=== PATIENT | female | born 1985 | race Caucasian/White ===

== ENCOUNTER 2019-03-21 16:25 | Observation (INO) ==
[2019-03-21] MEDS ORDERED: IOPAMIDOL 100 ML BOTTLE IV ONE (16:26)
[2019-03-21] MEDS ORDERED: PROMETHAZINE 25 MG/ML VIAL IV ONE (16:48)
[2019-03-21] MEDS ORDERED: 0.9 % SODIUM CHLORIDE 1,000 ML IV ONE (16:48)
[2019-03-21 17:12] LABS: POC Blood Urea Nitrogen 10 mg/dl (6-20); POC CO2 21 mmol/L (22-30); POC Calcium, Ionized 1.09 mmol/L (1.16-1.32); POC Chloride 106 mmol/L (96-108); POC Creatinine 0.3 mg/dl (0.6-1.1); POC Glucose, Random 103 mg/dL (70-105); POC Potassium 3.5 mmol/L (3.3-5.1); POC Sodium 138 mmol/L (133-145)
[2019-03-21 17:39] LABS: Basophils # (Auto) 0.1 K/mcL (0.0-0.3); Basophils % (Auto) 0.6 % (0.0-2.0); Eosinophils # (Auto) 0.3 K/mcL (0.0-0.7); Eosinophils % (Auto) 2.4 % (0.0-7.0); Granulocytes % (Auto) 89.3 % (38.0-78.0); Hematocrit 37.3 % (36.0-48.0); Hemoglobin 11.9 g/dL (12.0-15.0); Lymphocytes # (Auto) 0.5 K/mcL (1.5-4.8); Lymphocytes % (Auto) 4.5 % (15.5-49.0); Mean Cell Volume 78.3 fL (80.0-100.0); Mean Platelet Volume 8.5 fL (7.4-10.4); Monocytes # (Auto) 0.4 K/mcL (0.1-0.9); Monocytes % (Auto) 3.2 % (1.0-12.0); Platelet Count 327 K/mcL (140-440); RBC 4.77 M/mcL (4.00-5.20); Red Cell Distribution Width 19.8 % (11.5-14.5); WBC 11.2 K/mcL (4.5-11.0)
[2019-03-21] MEDS ORDERED: HYDROmorphone 2 MG/ML VIAL IV SCH (17:45)
[2019-03-21 17:56] LABS: ALT/SGPT 16 U/l (0-40); AST/SGOT 16 U/l (0-37); Albumin 3.7 gm/dL (3.2-5.2); Albumin/Globulin Ratio 1.2 (1.0-2.3); Alkaline Phosphatase 63 U/L (39-117); Bilirubin,Total 0.4 mg/dL (0.0-1.0); Blood Urea Nitrogen 11 mg/dl (6-20); Calcium 8.1 mg/dl (8.6-10.4); Carbon Dioxide 21 mmol/L (22-30); Chloride 106 mmol/L (96-108); Globulin 3.2 gm/dL (2.2-3.7); Glomerular Filtration Rate 137; Glucose 103 mg/dL (70-105)
--- NOTE | 2019-03-21 17:56 | Cat Scan Report ---
CLINICAL INFORMATION: Diffuse abdominal pain COMPARISON: None. TECHNIQUE: Following water as enteric contrast, 80 cc of Isovue-300 were injected intravenously, and 60 seconds later, 0.625 mm helical slices were obtained from the mid heart through the subtrochanteric regions. Following reconstruction, 2.5 mm sagittal, coronal and axial reformatted images were processed and reviewed at bone, lung and soft tissue windows. Five minutes later, 0.625 mm helical slices were obtained from the mid heart through the kidneys and viewed at soft tissue windows.The exam was performed using radiation dose optimization techniques including, but not limited to, automated exposure control, adjustment of the mA and/or kV according to patient size and use of iterative reconstruction technique. FINDINGS: Lung bases show no abnormality - no effusion. The visualized heart is unremarkable. Images through the abdomen show mild fatty change within the liver, but no focal lesion. The gallbladder is surgically absent. Intrahepatic and common bile ducts are normal caliber CBD is 5 mm. Both kidneys, adrenal glands, spleen, pancreas and aorta, including aortic branches, are normal in size, configuration and attenuation without focal lesion. Stomach, small and large bowel are symmetrically dilated compatible with mild ileus. Dwain-en-Y gastric bypass changes appear grossly normal. There is no free air, free fluid or adenopathy. Images through the pelvis show urinary bladder is unremarkable. Anteflexed uterus is normal in size 10 x 4 cm with a IUD in proper position in the endometrial cavity. Bone windows show no osseous abnormality. IMPRESSION: Moderate ileus Interpreted and Authenticated by: Roddy Perea 03/21/19
[2019-03-21] MEDS ORDERED: HYDROmorphone 2 MG/ML VIAL IV PRN (18:09)
--- NOTE | 2019-03-21 18:32 | Emergency Department Note ---
Abdominal Pain HPI - General Chief Complaint: Abdominal Pain Stated Complaint: abd pain Time Seen by Provider: 03/21/19 16:42 Source: patient Mode of arrival: ambulatory Limitations: no limitations - History of Present Illness HPI Narrative: 33-year-old female presents with diffuse abdominal pain. States she has chronic abdominal pain since 2009 when she had a gastric bypass and has been a complication since then. States she always has abdominal pain but the last 24 to 48 hours at all this and became much worse. Positive nausea. Some dry heaving but no vomiting. No diarrhea. Does have chills. No cough or cold symptoms. States the pain is all over her stomach and she does notKnow how to describe it better than that. - Related Data Home Medications Medication Instructions Recorded Confirmed Omeprazole 40 mg PO 03/21/19 Allergies Allergy/AdvReac Type Severity Reaction Status Date / Time morphine AdvReac Mild Hives Verified 03/21/19 16:28 NSAIDS (Non-Steroidal AdvReac Mild Other Verified 03/21/19 16:28 Anti-Inflamma Penicillins AdvReac Mild Anaphylaxis Verified 03/21/19 16:28 prednisone AdvReac Mild Rash Verified 03/21/19 16:28 Review of Systems All systems ED: reviewed and negative except as stated. Abdominal Pain PMH - Past Medical History Medical history: Reports: other (Gastric bypass surgery in 2009 and since then has had multiple abdominal abscesses and hernias that have been repaired.) Surgical history ED: Reports: herniorrhaphy, other (Gastric bypass) - Social History Smoking status: Current every day smoker Alcohol use: Reports: Unknown Drug use: Reports: unknown Physical Exam Limitations: no limitations General appearance: alert, other (Appears in pain) Head: atraumatic, normocephalic, normal inspection Eye: Present: normal appearance. Absent: conjunctival injection ENT: normal exam, normal oropharynx, mucous membranes moist, TM's normal bilaterally, normal external ear exam, other (Lips are slightly dry) Neck: Present: normal inspection, trachea midline. Absent: tenderness, lymphadenopathy Respiratory: Present: normal lung sounds bilaterally. Absent: respiratory distress, rales/crackles, accessory muscle use Cardiovascular: Present: regular rate, tachycardia, normal heart sounds Abdominal: Present: soft, distention, tenderness (Mild distention diffuse tenderness), guarding (Diffuse), hypoactive bowel sounds. Absent: rigidity, mass Extremities: Present: normal inspection, normal capillary refill Neurological: Present: alert, oriented X3 Psychiatric: Present: normal affect, normal mood Skin: Present: warm, dry, intact, normal color. Absent: rash, cyanosis, diaphoresis, erythema Course Course Narrative: At 1830 I did speak with the surgeon on-call, Dr. Vasquez who agrees to accept this patient we will put her in observation Vital Signs Temperature 100.0 F H 03/21/19 16:25 Pulse Rate 113 H 03/21/19 16:25 Respiratory Rate 16 03/21/19 16:25 Blood Pressure 112/73 03/21/19 16:25 Pulse Oximetry (%) 97 03/21/19 16:25 Temperature 100.5 F H 03/21/19 17:10 Pulse Rate 113 H 03/21/19 16:25 Respiratory Rate 22 03/21/19 17:10 Blood Pressure 108/56 03/21/19 17:10 Pulse Oximetry (%) 99 03/21/19 17:10 Abdominal Pain - Lab Data Lab results reviewed: Yes I reviewed the patient's lab results. Result diagrams: 03/21/19 17:04 03/21/19 17:04 Lab Results 03/21/19 03/21/19 Range/Units 17:04 17:04 WBC 11.2 H (4.5-11.0) K/mcL RBC 4.77 (4.00-5.20) M/mcL Hgb 11.9 L (12.0-15.0) g/dL Hct 37.3 (36.0-48.0) % POC Hct 37.0 (36.0-48.0) % MCV 78.3 L (80.0-100.0) fL MCH 25.0 L (26.0-34.0) pg MCHC 32.0 (31.0-36.0) g/dL RDW 19.8 H (11.5-14.5) % Plt Count 327 (140-440) K/mcL MPV 8.5 (7.4-10.4) fL Gran % 89.3 H (38.0-78.0) % Lymph % (Auto) 4.5 L (15.5-49.0) % [place] % (Auto) 3.2 (1.0-12.0) % Eos % (Auto) 2.4 (0.0-7.0) % Baso % (Auto) 0.6 (0.0-2.0) % Gran # 10.0 H (1.8-8.0) K/mcL Lymph # (Auto) 0.5 L (1.5-4.8) K/mcL [place] # (Auto) 0.4 (0.1-0.9) K/mcL Eos # (Auto) 0.3 (0.0-0.7) K/mcL Baso # (Auto) 0.1 (0.0-0.3) K/mcL POC Sodium 138 (133-145) mmol/L Sodium 139 (133-145) mmol/L POC Potassium 3.5 (3.3-5.1) mmol/L Potassium 3.5 (3.3-5.1) mmol/L POC Chloride 106 (96-108) mmol/L Chloride 106 (96-108) mmol/L Carbon Dioxide 21 L (22-30) mmol/L POC Total CO2 21 L (22-30) mmol/L Anion Gap 12.0 (8-16) POC BUN 10 (6-20) mg/dl BUN 11 (6-20) mg/dl Creatinine 0.4 L (0.6-1.1) mg/dl POC Creatinine 0.3 L (0.6-1.1) mg/dl GFR Calculation 137 Glucose 103 (70-105) mg/dL POC Glucose 103 (70-105) mg/dL Calcium 8.1 L (8.6-10.4) mg/dl POC WB Ioniz Calcium 1.09 L (1.16-1.32) mmol/L Total Bilirubin 0.4 (0.0-1.0) mg/dL AST 16 (0-37) U/l ALT 16 (0-40) U/l Alkaline Phosphatase 63 (39-117) U/L Total Protein 6.9 (5.9-8.4) gm/dL Albumin 3.7 (3.2-5.2) gm/dL Globulin 3.2 (2.2-3.7) gm/dL Albumin/Globulin Ratio 1.2 (1.0-2.3) Lipase 23 (7-60) U/L - Radiology Data Radiology results reviewed: Yes I reviewed the patient's radiology results. Disposition Pt seen by PRODUCT MANAGEMENT MANAGER/PA only: Yes Clinical Impression: Abdominal pain, Ileus, Nausea Disposition: Xfer As Outpt/Obs ([facility]) Condition: Fair Referrals: Rachel Vasquez MD [Physician] - Time of Disposition: 18:34
[2019-03-21] MEDS ORDERED: DIATRIZOATE MEGLU/DIATRIZO SOD 30 ML BOTTLE PO ONE (19:19)
[2019-03-21] MEDS: 0.9 % SODIUM CHLORIDE 1,000 ML IV SCH (20:18)
--- NOTE | 2019-03-21 21:17 | General Surg History&Physical ---
History of Present Illness Patient information: Note initiated : 03/21/19 at 9:15 pm Service Date, if different from initiated Date: [] Patient: Devan,December a 33 y/o F admitted on 03/21/19 for abd pain. Chief Complaint: [] HPI: Ms. Hartman is a 33 year old F admitted for evaluation of severe abdominal pain. The patient has a history of recurrent intestinal obstruction and multiple incisional hernias. She underwent gastric bypass in 2009. She had laparoscopic repair of incisional hernia in 2013. After that time she had laparoscopy for small bowel obstruction and drainage of a pelvic abscess. She has had repeat hernia in the epigastric midline 2014. Patient lost weight from 339 pounds 223 pounds. She had acute onset of abdominal pain with nausea and retching. Her last bowel movement was yesterday. She did not have any hematochezia. She had flatus yesterday but not today. She does not have major abdominal distention. Her white blood count has increased to 11.2. BUN and creatinine and liver enzymes are normal. CT findings suggestive of adynamic ileus with dilated small bowel and colon loops with gas extending to her rectum. Review of Systems All systems PM: reviewed and no additional remarkable complaints except as stated (no other symptoms except as noted in the history of present illness) Past History Past medical history: No chronic medical illnesses Past surgical history: Laparoscopic gastric bypass. Laparoscopic incisional hernia repair 2. Diagnostic laparoscopy. Bowel obstruction. Diagnostic laparoscopy for pelvic abscess. Cholecystectomy. 2 Past family history: Parents age 49 and 52 without medical illness. Siblings alive and well without Past social history: Tobacco one half pack per day. Denies alcohol use. Denies drug use Medications and Allergies Home Medications Medication Instructions Recorded Confirmed Type Omeprazole 40 mg PO DAILY 03/21/19 03/21/19 History Allergies Allergy/AdvReac Type Severity Reaction Status Date / Time morphine AdvReac Mild Hives Verified 03/21/19 16:28 NSAIDS (Non-Steroidal AdvReac Mild Other Verified 03/21/19 16:28 Anti-Inflamma Penicillins AdvReac Mild Anaphylaxis Verified 03/21/19 16:28 prednisone AdvReac Mild Rash Verified 03/21/19 16:28 Exam Temp Pulse Resp BP Pulse Ox 99.5 F H 90 16 114/73 95 03/21/19 20:00 03/21/19 20:00 03/21/19 20:00 03/21/19 20:00 03/21/19 20:00 - General physical appearance well developed, well nourished, no distress, moderate pain - Eyes PERRL, normal ocular movement - ENT normal pinna, normal nares, normal mucosa, no hearing loss, no congestion - Head Head exam IM: Present: atraumatic, normocephalic - Neck no masses, no bruits, trachea midline, no lymphadenopathy, no venous distension - Cardiovascular Cardiovascular exam IM: Present: normal rate and rhythm - Respiratory normal expansion, normal respiratory effort, clear to percussion, clear to auscultation - Abdomen Abdomen: Present: soft, tender (mild diffuse tenderness without pinpoint area; hyperactive bowel sounds; no palpable masses; no distention), bowel sounds Hernia: Present: none - Genitourinary Present: normal external genitalia - Integumentary Present: no rash, no growths, no abnormal pigmentation, other (redundant skin from weight loss. Otherwise, unremarkable) - Neurologic Present: normal coordination, normal sensation - Musculoskeletal Present: normal gait, normal posture - Psychiatric Present: oriented to time, oriented to person, oriented to place, speech is normal, memory intact Assessment and Plan (1) Adynamic ileus Most consider possibility of early intestinal obstruction, but gas extends all the way to the rectum. Will treat with Reglan and antiemetics tonight. Small bowel follow-through to be done in the morning. Repeat labs including lactate in the morning Status: Acute
[2019-03-21] MEDS ORDERED: ACETAMINOPHEN 1,000 MG/100 ML BOTTLE IV ONE (22:25)
[2019-03-21] MEDS: ACETAMINOPHEN 1,000 MG in PREMIX 1 BAG IV SCH (22:26)
[2019-03-21] MEDS: HYDROmorphone 2 MG/ML VIAL IV PRN (23:32)
[2019-03-21] MEDS: METOCLOPRAMIDE 10 MG/2 ML VIAL IV SCH (23:32)
[2019-03-22] MEDS ORDERED: ACETAMINOPHEN 1,000 MG/100 ML BOTTLE IV ONE ×3 (03:08→17:14)
[2019-03-22] MEDS: ACETAMINOPHEN 1,000 MG in PREMIX 1 BAG IV SCH ×3 (03:10→16:04)
[2019-03-22] MEDS: 0.9 % SODIUM CHLORIDE 1,000 ML IV SCH ×4 (04:12→22:24)
[2019-03-22] MEDS: METOCLOPRAMIDE 10 MG/2 ML VIAL IV SCH ×3 (05:43→17:16)
[2019-03-22] MEDS: HYDROmorphone 2 MG/ML VIAL IV PRN ×8 (05:47→22:24)
[2019-03-22 05:50] LABS: Basophils # (Auto) 0.1 K/mcL (0.0-0.3); Basophils % (Auto) 0.9 % (0.0-2.0); Eosinophils # (Auto) 0.2 K/mcL (0.0-0.7); Eosinophils % (Auto) 3.1 % (0.0-7.0); Granulocytes % (Auto) 69.4 % (38.0-78.0); Hematocrit 31.9 % (36.0-48.0); Hemoglobin 10.1 g/dL (12.0-15.0); Lymphocytes # (Auto) 1.6 K/mcL (1.5-4.8); Lymphocytes % (Auto) 21.2 % (15.5-49.0); Mean Cell Volume 79.2 fL (80.0-100.0); Mean Corpuscular HGB Conc 31.7 g/dL (31.0-36.0); Mean Platelet Volume 9.1 fL (7.4-10.4); Monocytes # (Auto) 0.4 K/mcL (0.1-0.9); Monocytes % (Auto) 5.4 % (1.0-12.0); Platelet Count 285 K/mcL (140-440); RBC 4.02 M/mcL (4.00-5.20); Red Cell Distribution Width 19.6 % (11.5-14.5); WBC 7.4 K/mcL (4.5-11.0)
[2019-03-22 05:55] LABS: ALT/SGPT 13 U/l (0-40); AST/SGOT 15 U/l (0-37); Albumin/Globulin Ratio 1.3 (1.0-2.3); Alkaline Phosphatase 50 U/L (39-117); Bilirubin,Direct < 0.2 mg/dL (0.0-0.3); Bilirubin,Total 0.2 mg/dL (0.0-1.0); Blood Urea Nitrogen 10 mg/dl (6-20); C-Reactive Protein 4.6 mg/dl (0.0-0.8); Calcium 7.2 mg/dl (8.6-10.4); Carbon Dioxide 21 mmol/L (22-30); Chloride 111 mmol/L (96-108); Globulin 2.4 gm/dL (2.2-3.7); Glomerular Filtration Rate 137; Glucose 72 mg/dL (70-105); Lactate Dehydrogenase 138 U/L (94-250); Phosphorous 3.4 mg/dL (2.7-4.5); Triglycerides 107 mg/dl (<150); Uric Acid 3.1 mg/dL (2.5-8.0)
[2019-03-22] MEDS ORDERED: POTASSIUM CHLORIDE 40 MEQ in DEXTROSE 5% IN WATER 500 ML IV ONE (07:12)
[2019-03-22] MEDS ORDERED: PANTOPRAZOLE 40 MG VIAL IV SCH (07:30)
[2019-03-22] MEDS: ESOMEPRAZOLE 40 MG VIAL IV SCH ×2 (07:55→17:10)
[2019-03-22] MEDS: ONDANSETRON 4 MG/2 ML VIAL IV PRN ×2 (09:05→22:24)
--- NOTE | 2019-03-22 15:26 | XRay Report ---
CLINICAL INFORMATION: Abdominal pain evaluate for bowel obstruction TECHNIQUE: Following staff nuclear medicine technologist imaging, water-soluble contrast was administered orally and serial films were obtained for two hours. FINDINGS: The Dwain-en-Y bypass is poorly visualized this patient that she was unwilling to drink additional contrast to opacify this region. The jejunum, distal to the Dwain anastomosis, and the entire ileum are normal in contour and caliber with thin uniform plicae circulares full - no bowel obstruction. Small bowel transit time is approximately one hour.. IMPRESSION: Negative exam - no evidence of obstruction or other small bowel pathology Interpreted and Authenticated by: Roddy Perea 03/22/19
[2019-03-22] MEDS: MAGNESIUM HYDROXIDE 30 ML ORAL.SUSP PO SCH ×3 (15:55→19:57)
--- NOTE | 2019-03-22 16:35 | General Surgery Progress Note ---
Subjective Patient reports: flatus, bowel movement, nausea Narrative: Note initiated : 03/22/19 at 4:33 pm Service Date, if different from initiated Date: [] Patient: DevanDecember a 33 y/o F admitted on 03/21/19 for abd pain. Chief Complaint: [patient continues to have crampy abdominal pain. She has passed flatus and has had a small bowel movement. A small bowel follow-through shows contrast through the small bowel into the cecum in about 65 minutes. She still has nausea. She is advised that there is no evidence of blockage. Her white blood count is normal and she is afebrile. Patient will be given milk of magnesia 3 doses and continued on Reglan. I'll get follow-up x-rays in the morning.] Objective Temp Pulse Resp BP Pulse Ox 99.2 F H 82 16 112/73 100 03/22/19 16:00 03/22/19 16:00 03/22/19 16:00 03/22/19 16:00 03/22/19 16:00 - Additional Data Intake & Output - Last 24 hours: Intake & Output 03/20/19 03/21/19 03/22/19 03/23/19 05:59 05:59 05:59 05:59 Intake Total 2200 1170 Balance 2200 1170 Weight 130 lb - General physical appearance moderate distress, moderate pain - Eyes PERRL, normal ocular movement - ENT normal pinna, normal nares, normal mucosa, no hearing loss, no congestion - Neck no masses, no bruits, trachea midline, no lymphadenopathy, no venous distension - Respiratory normal expansion, normal respiratory effort, clear to auscultation - Cardiovascular Cardiovascular exam: Present: normal rate and rhythm, RRR, +S1, +S2. Absent: JVD, tachycardia - Abdomen soft, tender (mild tenderness in the midabdomen; good active bowel sounds; no abdominal distention) - Integumentary no rash, no growths, no abnormal pigmentation - Neurologic normal coordination - Musculoskeletal normal gait, normal posture - Psychiatric oriented to time, oriented to person, oriented to place, speech is normal, memory intact - Labs 03/22/19 03:38 03/22/19 03:38 Diabetes panel 03/21/19 03/22/19 Range/Units 17:04 03:38 Sodium 139 142 (133-145) mmol/L Potassium 3.5 3.2 L (3.3-5.1) mmol/L Chloride 106 111 H (96-108) mmol/L Carbon Dioxide 21 L 21 L (22-30) mmol/L BUN 11 10 (6-20) mg/dl Creatinine 0.4 L 0.4 L (0.6-1.1) mg/dl Glucose 103 72 (70-105) mg/dL Calcium 8.1 L 7.2 L (8.6-10.4) mg/dl AST 16 15 (0-37) U/l ALT 16 13 (0-40) U/l Alkaline Phosphatase 63 50 (39-117) U/L Total Protein 6.9 5.4 L (5.9-8.4) gm/dL Albumin 3.7 3.0 L (3.2-5.2) gm/dL Triglycerides 107 (<150) mg/dl Calcium panel 03/21/19 03/22/19 Range/Units 17:04 03:38 Calcium 8.1 L 7.2 L (8.6-10.4) mg/dl Phosphorus 3.4 (2.7-4.5) mg/dL Albumin 3.7 3.0 L (3.2-5.2) gm/dL Pituitary panel 03/21/19 03/22/19 Range/Units 17:04 03:38 Sodium 139 142 (133-145) mmol/L Potassium 3.5 3.2 L (3.3-5.1) mmol/L Chloride 106 111 H (96-108) mmol/L Carbon Dioxide 21 L 21 L (22-30) mmol/L BUN 11 10 (6-20) mg/dl Creatinine 0.4 L 0.4 L (0.6-1.1) mg/dl Glucose 103 72 (70-105) mg/dL Calcium 8.1 L 7.2 L (8.6-10.4) mg/dl Adrenal panel 03/21/19 03/22/19 Range/Units 17:04 03:38 Sodium 139 142 (133-145) mmol/L Potassium 3.5 3.2 L (3.3-5.1) mmol/L Chloride 106 111 H (96-108) mmol/L Carbon Dioxide 21 L 21 L (22-30) mmol/L BUN 11 10 (6-20) mg/dl Creatinine 0.4 L 0.4 L (0.6-1.1) mg/dl Glucose 103 72 (70-105) mg/dL Calcium 8.1 L 7.2 L (8.6-10.4) mg/dl Total Bilirubin 0.4 0.2 (0.0-1.0) mg/dL AST 16 15 (0-37) U/l ALT 16 13 (0-40) U/l Alkaline Phosphatase 63 50 (39-117) U/L Total Protein 6.9 5.4 L (5.9-8.4) gm/dL Albumin 3.7 3.0 L (3.2-5.2) gm/dL Assessment and Plan (1) Adynamic ileus Status: Acute Assessment and plan: Milk of magnesia 3 doses. Follow-up abdominal x-rays in the morning. Continue Reglan IV. Trial of clear liquids Current Visit: Yes - Time Spent With Patient Total time spent is greater than 50% in coordination of care (as documented) at patient's floor/unit and/or counseling patient:
[2019-03-23] MEDS: METOCLOPRAMIDE 10 MG/2 ML VIAL IV SCH ×3 (00:04→11:53)
[2019-03-23] MEDS: HYDROmorphone 2 MG/ML VIAL IV PRN ×7 (00:38→14:28)
[2019-03-23] MEDS: 0.9 % SODIUM CHLORIDE 1,000 ML IV SCH (04:58)
[2019-03-23 05:25] LABS: Basophils # (Auto) 0.1 K/mcL (0.0-0.3); Basophils % (Auto) 0.8 % (0.0-2.0); Eosinophils # (Auto) 0.2 K/mcL (0.0-0.7); Eosinophils % (Auto) 3.1 % (0.0-7.0); Granulocytes % (Auto) 44.9 % (38.0-78.0); Hematocrit 29.3 % (36.0-48.0); Hemoglobin 9.2 g/dL (12.0-15.0); Lymphocytes # (Auto) 2.8 K/mcL (1.5-4.8); Mean Cell Volume 78.5 fL (80.0-100.0); Mean Corpuscular HGB Conc 31.5 g/dL (31.0-36.0); Mean Platelet Volume 8.8 fL (7.4-10.4); Monocytes # (Auto) 0.6 K/mcL (0.1-0.9); Monocytes % (Auto) 9.2 % (1.0-12.0); Platelet Count 304 K/mcL (140-440); RBC 3.73 M/mcL (4.00-5.20); Red Cell Distribution Width 19.4 % (11.5-14.5); WBC 6.6 K/mcL (4.5-11.0)
[2019-03-23 06:10] LABS: ALT/SGPT 33 U/l (0-40); AST/SGOT 29 U/l (0-37); Albumin 2.8 gm/dL (3.2-5.2); Albumin/Globulin Ratio 1.3 (1.0-2.3); Alkaline Phosphatase 71 U/L (39-117); Bilirubin,Direct < 0.2 mg/dL (0.0-0.3); Bilirubin,Total < 0.2 mg/dL (0.0-1.0); Blood Urea Nitrogen 4 mg/dl (6-20); Calcium 7.4 mg/dl (8.6-10.4); Carbon Dioxide 23 mmol/L (22-30); Chloride 109 mmol/L (96-108); Globulin 2.2 gm/dL (2.2-3.7); Glomerular Filtration Rate 137; Glucose 72 mg/dL (70-105); Lactate Dehydrogenase 161 U/L (94-250); Phosphorous 2.9 mg/dL (2.7-4.5); Triglycerides 77 mg/dl (<150); Uric Acid 3.4 mg/dL (2.5-8.0)
[2019-03-23] MEDS: ESOMEPRAZOLE 40 MG VIAL IV SCH (08:02)
--- NOTE | 2019-03-23 11:52 | Discharge Summary ---
Providers - Providers Patient information: Note initiated : 03/23/19 at 11:48 am Service Date, if different from initiated Date: [] Patient: Devan 33 y/o F admitted on 03/21/19 for abd pain. Chief Complaint: [] Date of admission: 03/21/19 Discharge date: 03/23/19 Attending physician: Rachel Vasquez Hospitalization Hospital course: 33-year-old female with history of multiple abdominal procedures and acute in onset of abdominal pain with nausea and retching. She is status post Dwain-en-Y gastric bypass in 2009. She had complications related to surgery, which required reoperation. She developed small bowel obstruction which was treated laparoscopically. She also had at least 3 hernia repairs through port sites. The patientwith admitted with a finding of severe adynamic ileus with dilated loops of small bowel and colon. By CT gas traverse her small bowel all the way through to her rectum. She was admitted and made nothing by mouth. She had a small bowel follow-through done which showed contrast in the right colon at 1 hour and she started having bowel movements after 2 hours. Follow-up x-ray this morning shows clearing of all of the contrast with some gaseous distention of her transverse colon and descending colon. She is afebrile and her other vital signs stable. She has had at least 7 bowel movements and pass copious amounts of flatus. She still has pain but this is probably her baseline. Patient is stable enough to be discharged. She will be going home to [place] and she is advised to follow-up with her primary physician and surgeon when she arrives there. Discharge diagnosis: adynamic ileus Secondary discharge diagnosis: Chronic abdominal pain. Recurrent intestinal obstruction by history Reason for admission: severe abdominal pain with nausea Procedures: None Pertinent studies/significant findings: Single contrast small bowel follow-through Complications: None Exam Temp Pulse Resp BP Pulse Ox 97.9 F 64 16 97/65 97 03/23/19 07:14 03/23/19 03:15 03/23/19 07:14 03/23/19 07:14 03/23/19 07:14 - General physical appearance well developed, well nourished, no distress - Eyes PERRL, normal ocular movement - ENT normal pinna, normal nares, normal mucosa, no hearing loss, no congestion - Head Head exam IM: Present: atraumatic, normocephalic - Neck no masses, no bruits, trachea midline, no lymphadenopathy, no venous distension - Cardiovascular Cardiovascular exam IM: Present: normal rate and rhythm - Respiratory normal expansion, normal respiratory effort, clear to percussion, clear to auscultation - Abdomen Abdomen: Present: soft, tender (mild mid abdominal tenderness), bowel sounds, distended (. No significant abdominal distention) Hernia: Present: none - Genitourinary Present: normal external genitalia - Integumentary Present: no rash, no growths, no abnormal pigmentation - Neurologic Present: normal coordination, normal sensation - Musculoskeletal Present: normal gait, normal posture - Psychiatric Present: oriented to time, oriented to person, oriented to place, speech is normal, memory intact Discharge Plan - Patient/Caregiver Discharge Instructions Activity: increase activity as tolerated (.) Diet: Regular Diet Prescriptions: HYDROcodone/APAP 10/325MG [[place] 10-325Mg] 1 tab PO Q4H PRN #20 tab PRN Reason: Pain Ondansetron HCl [Zofran] 4 mg PO Q4 PRN #10 tab PRN Reason: Nausea And Vomiting - Follow up Plan Follow up with: Rachel Vasquez MD [Physician] - Disposition: Home, Self-Care Prognosis: Good Rehab Potential: Good I certify that the patient requires SNF services.: No Overall status at discharge: patient is progressing back to baseline Pending Studies Resuscitation Status Do Not Resuscitate Diet GI Soft/Transitional Start Tasha Mar 23 721 Esomeprazole Magnesium (Nexium) 40 mg IV BIDAC [facility] Last Admin: 03/23/19 08:02 Dose: 40 mg Documented by: [email or web address] Admin: 03/22/19 17:10 Dose: 40 mg Documented by: [email or web address] Admin: 03/22/19 07:55 Dose: 40 mg Documented by: [email or web address] Hydromorphone HCl (Dilaudid) 1 mg IV Q2HP PRN PRN Reason: PAIN LEVEL > 6 Last Admin: 03/23/19 10:04 Dose: 1 mg Documented by: [email or web address] Admin: 03/23/19 07:54 Dose: 1 mg Documented by: [email or web address] Admin: 03/23/19 05:50 Dose: 1 mg Documented by: [email or web address] Admin: 03/23/19 03:14 Dose: 1 mg Documented by: Admin: 03/23/19 00:38 Dose: 1 mg Documented by: Admin: 03/22/19 22:24 Dose: 1 mg Documented by: Admin: 03/22/19 19:58 Dose: 1 mg Documented by: Admin: 03/22/19 17:24 Dose: 1 mg Documented by: Admin: 03/22/19 15:19 Dose: 1 mg Documented by: [email or web address] Admin: 03/22/19 13:12 Dose: 1 mg Documented by: Admin: 03/22/19 10:55 Dose: 1 mg Documented by: LATNing Admin: 03/22/19 08:39 Dose: 1 mg Documented by: Admin: 03/22/19 05:47 Dose: 1 mg Documented by: Admin: 03/21/19 23:32 Dose: 1 mg Documented by: SANG Metoclopramide HCl (Reglan) 10 mg IV Q6 MICAELA Last Admin: 03/23/19 05:01 Dose: 10 mg Documented by: Admin: 03/23/19 00:04 Dose: 10 mg Documented by: Admin: 03/22/19 17:16 Dose: 10 mg Documented by: Admin: 03/22/19 12:30 Dose: 10 mg Documented by: Admin: 03/22/19 05:43 Dose: 10 mg Documented by: Admin: 03/21/19 23:32 Dose: 10 mg Documented by: SANG Ondansetron HCl (Zofran) 4 mg IV Q4HP PRN PRN Reason: Nausea And Vomiting Last Admin: 03/22/19 22:24 Dose: 4 mg Documented by: Admin: 03/22/19 09:05 Dose: 4 mg Documented by: LIANET Shift Summary 03/23/19 02:29 Shift Summary by Isabel Costa A&Jaay [email or web address]. Pt up ad nette in room to bathroom. Pt has had many BMs this shift - states it is like water coming out all orifices. Receiving IV dilaudid 1 mg for pain. Zofran x1 for nausea. NS at 150ml/hr to IV to the R forearm. Tolerating clear liquid diet. Possible D/C today after X-ray. Initialized on 03/23/19 02:29 - END OF NOTE
--- NOTE | 2019-03-23 13:14 | XRay Report ---
CLINICAL INFORMATION: follow up COMPARISON: None. FINDINGS: All of the enteric contrast, from yesterday's small bowel follow-through study, has cleared. There is slight dilatation of the right and transverse colon. The descending, rectosigmoid colon and small bowel are relatively gasless. No free air or soft tissue mass. IMPRESSION: Mild atypical ileus. Interpreted and Authenticated by: Roddy Perea 03/23/19
== END 2019-03-23 14:20 | disposition home or self-care (01) ==
LOC: MEDSUR 16:25 → ED 16:25 → MEDSUR 19:18
PROVIDERS: ADMIT Family Medicine Adult Medicine; ATTEND Family Medicine Adult Medicine